=== PATIENT | female | born 1955 | race Caucasian/White ===

== ENCOUNTER 2016-08-12 08:55 | Day surgery (SDC) | payer BC ==
[~2016-08-12] VITALS: Ht 162.6 cm; Wt 54.0 kg
[2016-08-12] MEDS ORDERED: PROPOFOL 20 ML ONE (09:45)
[2016-08-12 10:06] VITALS: Ht 162.6 cm; Wt 54.0 kg
[2016-08-12 10:28] VITALS: BP 141/76; PULSE 41; RESP 14
[2016-08-12] MEDS ORDERED: ATROPINE 1 MG/10 ML SYRINGE ONE (11:10)
[2016-08-12 11:45] VITALS: BP 113/69; PULSE 46; RESP 20
--- NOTE | 2016-08-12 11:56 | GILP ---
DATE OF PROCEDURE: 08/12/2016 NAME OF PROCEDURE: Colonoscopy. SURGEON: Maria Luz Lowery MD PREOPERATIVE DIAGNOSIS: Screening colonoscopy. POSTOPERATIVE DIAGNOSES: 1. Colonoscopy all the way to the cecum. 2. Poor prep making the exam somewhat suboptimal. 3. Small internal hemorrhoids. 4. No colon neoplasm was identified. INDICATION FOR THE PROCEDURE: Ms. Mar Macario is a 61-year-old female patient who was schedule d for screening colonoscopy. The procedure and possible complications are well explained to the patient, she understood and conse nted to the procedure. DESCRIPTION OF PROCEDURE: Under the influence of anesthesia, the colonoscope was carefully introduc ed in the rectum and under direct vision, it was advanced all the way to the cecum. FINDINGS: The patient had somewhat poor prep making the exam somewhat suboptimal. She was noted to have small internal hemorrhoids. No other abnormality was identified. There was no gross neoplasm . She tolerated the procedure very well and there was no complication from the procedure. At the end of the procedures, she was awake with stable vital signs and she was discharged home to the care of her family. IMPRESSION: 1. Colonoscopy all the way to the cecum. 2. Poor prep making the exam somewhat suboptimal. 3. Small internal hemorrhoids. No gross neoplasm was identified. PLAN: Next screening colonoscopy in ten years. Dictated By: MARIA LUZ CLARK/WILFRID Conf#: [id number] DID#: [id number] CC: MARIA LUZ LOWERY MD;*EndCC*
== END 2016-08-12 13:29 | disposition home or self-care (01) ==
LOC: SDS 08:55 → GIL 09:05 → SDS 13:29
PROVIDERS: ATTEND Internal Medicine Gastroenterology
DX: Z12.11 Encounter for screening for malignant neoplasm of colon (principal)
CPT/HCPCS: 45378; J0461